=== PATIENT | male | born 1995 | race Caucasian/White ===

== ENCOUNTER 2016-05-02 07:57 | Emergency (ER) | payer MEDICAID, OTHER ==
[~2016-05-02] VITALS: Ht 177.8 cm; Wt 78.0 kg
[~2016-05-02 07:57] MED LIST: ALBUAER3 INH; PRED20 PO
[2016-05-02 08:01] VITALS: BP 123/77; PULSE 86; RESP 16; TEMP 98.6; O2SAT 96
--- NOTE | 2016-05-02 08:30 | PD ---
HPI Chief Complaint: ENT Complaint Time Seen by Provider: 08:29 Travel History International Travel<30 days: No Contact w/Intl Traveler<30days: No Traveled to known affect area: No History of Present Illness HPI 20-year-old male presents to the emergency department for evaluation of sore throat that started last night. He denies any fevers or chills. No cough, congestion, shortness of breath. No abdominal pain. No nausea or vomiting. Patient states that 2 coworkers were recently diagnosed with strep throat. He has no chronic medical problems and takes no prescribed medications. Patient denies any other complaints at this time. [facility] Past Medical History Asthma: Yes Social History Alcohol Use: Yes (OCC) Tobacco Use: Yes (PPD) Substance Use: No Allergies-Medications (Allergen,Severity, Reaction): Coded Allergies: No Known Allergies (Unverified , 05/02/16) Reported Meds & Prescriptions Reported Meds & Active Scripts Active No Active Prescriptions or Reported Medications Review of Systems Except as stated in HPI: all other systems reviewed are Neg Physical Exam Narrative GENERAL: Well-developed well-nourished male patient, ambulatory. Afebrile. SKIN: Warm and dry. HEAD: Normocephalic. Atraumatic.ENT: Mucosa pink and moist. No erythema or exudates. No uvular edema. No uvular, palatal, or tonsillar deviation. Airway patent. Nasal turbinates appear normal without nasal blood, purulent drainage or septal hematoma. Bilateral tympanic membranes are clear without erythema or perforation. EYES: No scleral icterus. No injection or drainage. NECK: Supple, trachea midline. No JVD or lymphadenopathy. CARDIOVASCULAR: Regular rate and rhythm without murmurs, gallops, or rubs. RESPIRATORY: Breath sounds equal bilaterally. No accessory muscle use. Lungs sounds clear to auscultation. GASTROINTESTINAL: Abdomen soft, non-tender, nondistended. MUSCULOSKELETAL: No cyanosis, or edema. BACK: Nontender without obvious deformity. No CVA tenderness. Data Data Last Documented VS Vital Signs Date Time Temp Pulse Resp B/P Pulse Ox O2 Delivery O2 Flow Rate FiO2 05/02/16 08:01 98.6 86 16 123/77 96 Room Air Orders Group A Rapid Strep Screen (05/02/16 08:27) Strep Culture (Group A) (05/02/16 08:15) MDM Medical Decision Making Medical Screen Exam Complete: Yes Emergency Medical Condition: Yes Medical Record Reviewed: Yes Differential Diagnosis Strep pharyngitis versus viral pharyngitis versus mononucleosis versus viral URI Narrative Course 20-year-old male presents to the emergency department for evaluation of sore throat since last night. Strep swab is ordered and pending. Strep is negative. Patient is instructed to take Tylenol/Ibuprofen, do warm salt water gargles. He verbalizes understanding and agreement. The patient was discharged in stable condition with instructions, including return instructions and follow up instructions. Diagnosis Primary Impression: Viral pharyngitis Referrals: Primary Care Physician call for appointment Patient Instructions: General Instructions, Pharyngitis (ED) Departure Forms: Tests/Procedures, Work Release Enter return to work date: May 04, 2016 Additional Instructions: Tylenol/ibuprofen [id number] as needed for pain according to package instructions. Warm salt water gargles. Follow-up with your primary care physician. Return to the emergency department for any acute worsening of symptoms. Med/Other Pt SpecificInfo: No Change to Meds Scripts No Active Prescriptions or Reported Meds Disposition: 01 DISCHARGE HOME Condition: Stable Yana Brar DONNA May 02, 2016 08:29
== END 2016-05-02 09:47 | disposition home or self-care (01) ==
LOC: NETRI 07:57
DX: J02.9 Acute pharyngitis, unspecified (principal); F17.210 Nicotine dependence, cigarettes, uncomplicated
CPT/HCPCS: 87081; 87880; 99283

== ENCOUNTER 2017-08-01 10:31 | Emergency (ER) | payer SELFPAY ==
[~2017-08-01] VITALS: Ht 177.8 cm; Wt 84.0 kg
[2017-08-01 10:34] VITALS: BP 141/85; PULSE 64; RESP 18; TEMP 98.2; O2SAT 97
[2017-08-01] MEDS ORDERED: PENI500T PO (11:09)
--- NOTE | 2017-08-01 11:09 | PD ---
HPI Chief Complaint: Oral / Dental Pain or Problem Time Seen by Provider: 10:59 Travel History International Travel<30 days: No Contact w/Intl Traveler<30days: No Traveled to known affect area: No History of Present Illness HPI 22-year-old male with right upper dental pain 2 days. No fever chills. Pain is throbbing and constant. Severity is moderate. Aggravated by hot/cold foods and chewing. No alleviating factors. PFSH Past Medical History Medical History: Denies Significant Hx Asthma: Yes Tetanus Vaccination: > 5 Years Influenza Vaccination: No Past Surgical History Surgical History: No Previous Surgery Social History Alcohol Use: No Tobacco Use: Yes (02/08 PPD) Substance Use: No Allergies-Medications (Allergen,Severity, Reaction): Coded Allergies: No Known Allergies (Unverified Adverse Reaction, Unknown, 08/01/17) Reported Meds & Prescriptions Reported Meds & Active Scripts Active No Active Prescriptions or Reported Medications Review of Systems Except as stated in HPI: all other systems reviewed are Neg General / Constitutional: No: Fever Physical Exam Narrative GENERAL: Alert and well-appearing 22-year-old male SKIN: Warm and dry. HEAD: Normocephalic. EYES: No injection or drainage. MOUTH: Widespread dental decay. Patient points to tooth #2 site of pain. The tooth is decayed with mild surrounding gum erythema. The swelling to the floor the mouth. Uvula is midline. Airways patent. NECK: Supple, trachea midline. No lymphadenopathy. CARDIOVASCULAR: Regular rate and rhythm without murmurs, gallops, or rubs. RESPIRATORY: Breath sounds equal bilaterally. No accessory muscle use. GASTROINTESTINAL: Abdomen soft, non-tender, nondistended. MUSCULOSKELETAL: No cyanosis, or edema. Data Data Last Documented VS Vital Signs Date Time Temp Pulse Resp B/P (MAP) Pulse Ox O2 Delivery O2 Flow Rate FiO2 08/01/17 10:34 98.2 64 18 141/85 (103) 97 MDM Medical Decision Making Medical Screen Exam Complete: Yes Emergency Medical Condition: Yes Differential Diagnosis Dental abscess, dental caries, periodontal disease. Narrative Course 22-year-old male with dental pain. He is nontoxic appearing. Diagnosis Primary Impression: Pain, dental Referrals: Dentist Additional Instructions: Medication as directed. Follow-up with your dentist Scripts Penicillin V Potassium (Penicillin V Potassium) 500 Mg Tab 500 MG PO Q6H for Infection for 7 Days, #28 TAB 0 Refills Prov: Alexus Paris 08/01/17 Disposition: 01 DISCHARGE HOME Condition: Stable Alexus Paris Aug 01, 2017 11:09
== END 2017-08-01 11:18 | disposition home or self-care (01) ==
LOC: PHEFT 10:31
DX: K08.89 Other specified disorders of teeth and supporting structures (principal); J45.909 Unspecified asthma, uncomplicated; F17.210 Nicotine dependence, cigarettes, uncomplicated
CPT/HCPCS: 99283